=== PATIENT | male | born 1960 | race Caucasian/White ===

== ENCOUNTER 2021-06-15 09:15 | Emergency (ER) | payer OTHER ==
[~2021-06-15] VITALS: Ht 182.9 cm; Wt 113.4 kg
--- NOTE | 2021-06-15 09:16 | NUR ---
DENISE GUTIÉRREZ CHP TO CHAIR Laisha
[2021-06-15 09:22] VITALS: BP 150/97
[2021-06-15 10:02] VITALS: BP 150/97
--- NOTE | 2021-06-15 10:03 | NUR ---
Patient discharged with [employer] with v/s stable. Written and verbal after care instructions given and explained. Patient verbalized understanding. Ambulatory with steady gait. All questions addressed prior to discharge. Advised to follow up with PMD.
== END 2021-06-15 10:03 ==
LOC: MED 09:15
DX: R07.89 Other chest pain (principal); V89.2XXA Person injured in unspecified motor-vehicle accident, traffic, initial encounter; Y93.89 Activity, other specified; Y92.89 Other specified places as the place of occurrence of the external cause; Y99.8 Other external cause status
CPT/HCPCS: 71045; 99283